=== PATIENT | female | born 1980 | race Caucasian/White ===

== ENCOUNTER 2019-05-22 12:46 | Outpatient (CLI) | payer OTHER ==
[~2019-05-22] VITALS: Ht 154.9 cm; Wt 90.9 kg
[2019-05-22 12:57] VITALS: BP 141/81
== END 2019-05-22 14:00 | disposition home or self-care (01) ==
LOC: LDOP 12:46
PROVIDERS: ATTEND Obstetrics & Gynecology
DX: O09.892 Supervision of other high risk pregnancies, second trimester (principal); O26.892 Other specified pregnancy related conditions, second trimester; R25.2 Cramp and spasm; Z3A.24 24 weeks gestation of pregnancy; Z88.5 Allergy status to narcotic agent; Z88.8 Allergy status to other drugs, medicaments and biological substances
CPT/HCPCS: 59025; 99201; G0463